=== PATIENT | female | born 1960 | race African-American/Black ===

== ENCOUNTER → 2017-07-20 | Emergency (ER) | payer OTHER ==
[~2017-07-20] VITALS: Ht 157.5 cm; Wt 122.5 kg
--- NOTE | 2017-07-21 03:10 | Emergency Room Report ---
History of Present Illness General Chief Complaint: Chest Pain Source: Patient Present Illness HPI Patient with chest pain 3 days. Intermittent, but more constant. L sided with radiation to L hand with tingling there. Somewhat pleuritic and positional. Pain also in upper back on L side. No fevers, cough, calf pain/swelling, palpitations. She has not taken any medications for this. She suffers from chronic back pain. No family history, DM, HTN, smoking. Post treadmill many years ago. Allergies: Coded Allergies: CODEINE (Verified Allergy, Unknown, 07/20/17) Patient History Past Medical History: see triage record Social History: Denies: smoking Social History Narrative with friend Last Menstrual Period: menopause Reviewed Nursing Documentation: PMH: Agreed, PSxH: Agreed Nursing Documentation-PMH Past Medical History: No History, Except For Review of Systems All Other Systems: negative except mentioned in HPI Physical Exam Vital Signs Date Time Temp Pulse Resp B/P (MAP) Pulse Ox O2 Delivery O2 Flow Rate FiO2 07/20/17 11:57 98.1 86 18 149/83 98 Room Air Sp02 EP Interpretation: reviewed, normal General Appearance: well appearing, no apparent distress, GCS 15 Head: normocephalic Eyes: bilateral eye normal inspection, bilateral eye PERRL ENT: moist mucus membranes Neck: supple Respiratory: lungs clear, normal breath sounds, other - some posterior upper back tenderness Cardiovascular #1: regular rate, rhythm Cardiovascular #2: 2+ radial (R) Gastrointestinal: normal inspection, normal bowel sounds, non tender, no mass, non-distended, overweight Musculoskeletal: back normal, gait/station normal, normal range of motion Neurologic: alert, oriented x3, grossly normal Psychiatric: mood/affect normal Skin: normal inspection, warm/dry Medical Decision Making Diagnostic Impression: Primary Impression: Chest pain Qualified Codes: R07.9 - Chest pain, unspecified ER Course Patient presents with 3 days of chest pain. DDx: AMI, ACS, GERD, pleurisy, costochondritis, back pain radiating/spasm amongst others. EKG, CXR, labs indicated. Planned treatment with aspirin and consideration for muscle relaxant. Patient states she does not want to have further evaluation as her friend needs to go to work. I explained risk of from [place]. She understands and plans to come back later. Last Vital Signs Date Time Temp Pulse Resp B/P (MAP) Pulse Ox O2 Delivery O2 Flow Rate FiO2 07/20/17 11:57 98.1 86 18 149/83 98 Room Air Status: unchanged Disposition: AGAINST MEDICAL ADVICE Condition: Unknown Referrals: [facility]ERR[facility] (PCP) Ken Webber M.D. Jul 21, 2017 03:10
== END | disposition home or self-care (01) ==
LOC: EDBD → EMR 16:28 → EDBD 16:28 → MERGE 16:28
DX: R07.89 Other chest pain (principal); M54.9 Dorsalgia, unspecified; Z88.6 Allergy status to analgesic agent
CPT/HCPCS: 99282